=== PATIENT | male | born 1955 | race Caucasian/White ===

== ENCOUNTER → 2018-12-06 | Outpatient (CLI) | payer BC ==
[~2018-12-06] MED LIST: ASPIRIN81 MG PO; IOPAMIDOL 370 MG/ML 200 ML INFUS..BTL INJ ONE; NORVASC5 MG PO; OMEPRAZOLE40 MG PO; SODIUM CHLORIDE 0.9% 500ML 500 ML ONE; SODIUM CHLORIDE 0.9% 50ML 50 ML ONE
[2018-12-06 16:40] LABS: BLOOD UREA NITROGEN 10 mg/dL (7-26); BUN/CREATININE RATIO 11 (6-25); CREATININE, SERUM 0.92 mg/dL (0.72-1.25); EST GLOMERULAR FILTRATION RATE > 60 ML/MIN (60-)
--- NOTE | 2018-12-06 19:39 | Diagnostic Imaging Report ---
EXAMINATION: CT of the abdomen and pelvis with contrast. TECHNIQUE: Spiral CT images of the abdomen and pelvis were performed from the lung bases to the lesser trochanters after the intravenous administration of 100 cc of Isovue 370 and the oral administration of water. Coronal and sagittal reformatted images were obtained. COMPARISON: None. CLINICAL HISTORY:Right upper quadrant abdominal bulge and pain DISCUSSION: ABDOMEN/PELVIS: LOWER THORAX:6.5 mm pulmonary nodule in the right middle lobe (series 2, image 4). HEPATOBILIARY: Normal hepatic size and contour. Diffuse steatosis. Multiple fluid density lesions are scattered in both hepatic lobes, with the largest on the right measuring approximately 3.4 x 2.8 cm in segment VII (series 2, image 14), and the largest on the left measuring approximately 1.2 x 1.0 cm in hepatic segment II (series 2, image 11), consistent with simple cysts. No other hepatic lesions. No intra or extrahepatic biliary ductal dilation. GALLBLADDER: No radio-opaque stones or sludge. No wall thickening. SPLEEN: No splenomegaly. PANCREAS: No focal masses or ductal dilatation. ADRENALS: No adrenal nodules. KIDNEYS/URETERS: No hydronephrosis, stones, or solid mass lesions. Mostly exophytic 5.5 x 5.5 cm fluid density simple cyst in the left superior pole (series 2, image 23). 1.8 x 1.8 cm fluid density simple cyst in the right mid to inferior aspect (series 2, image 37). Well-defined fluid density structures in bilateral renal sinuses, likely representing peripelvic cysts. PELVIC ORGANS/BLADDER: No focal bladder lesions. Mild circumferential bladder wall thickening. The prostate measures approximately 4.1 x 3.7 x 4.1 cm (estimated volume 32 mL). PERITONEUM/RETROPERITONEUM: No free air or fluid. LYMPH NODES: No intra-abdominal, retroperitoneal, pelvic or inguinal lymphadenopathy. VESSELS: The celiac trunk,superior and inferior mesenteric and bilateral renal arteries are patent The portal, superior mesenteric and splenic veins are patent. GI TRACT: No bowel dilation or evidence of obstruction. No pericolonic inflammatory changes. Appendix is well identified and normal in caliber. No wall thickening. BONES AND SOFT TISSUE: No aggressive lytic lesions. Multilevel degenerative disc changes in the lower thoracic and lumbosacral spine. Nonaggressive appearing focal sclerotic 5 mm lesion in the left iliac bone (series 2, image 56), likely representing a bone island. Soft tissues are unremarkable. Specifically, no soft tissue mass is identified in the right lower chest or abdominal pelvic wall. IMPRESSION: 1. No soft tissue abnormalities. Specifically, no focal soft tissue mass is noted in the right abdomen. 2. Diffuse hepatic steatosis. Multiple simple appearing hepatic cysts. 3. Simple renal cysts, as described. 4. 6.5 mm pulmonary nodule in the right middle lobe. Recommend follow-up low dose nodule noncontrast chest CT in 6-12 months per Fleischner Society 2017 guidelines. 5. Mild circumferential bladder wall thickening. This may reflect mild bladder outlet obstruction from a borderline enlarged prostate. Signed by: Dr. Aidan Toledo M.D. on 12/06/2018 7:35 PM
== END ==
LOC: CT 15:04
PROVIDERS: ATTEND Internal Medicine Gastroenterology
DX: R19.01 Right upper quadrant abdominal swelling, mass and lump (principal)
CPT/HCPCS: 36415; 74177; 82565; 84520; J7040; Q9967

== ENCOUNTER → 2019-01-31 | Outpatient (CLI) | payer BC ==
[~2019-01-31] MED LIST changes: -IOPAMIDOL 370 MG/ML 200 ML INFUS..BTL INJ ONE; -SODIUM CHLORIDE 0.9% 500ML 500 ML ONE; -SODIUM CHLORIDE 0.9% 50ML 50 ML ONE
--- NOTE | 2019-01-31 09:45 | Diagnostic Imaging Report ---
EXAM: US GALLBLADDER DATE: 01/31/2019 7:38 AM INDICATION: Abdominal pain COMPARISON: CT abdomen and pelvis 12/06/2018 TECHNIQUE: Transverse and longitudinal rodriguez scale and color doppler sonographic images of the upper abdomen were obtained. FINDINGS: LIVER 15.6 cm in the right midclavicular line. Increased echogenicity, normal contour, no solid masses. Anechoic simple cyst in the left lobe measures 1.3 x 1.2 x 1.7 cm. GALLBLADDER Multiple shadowing, echogenic calculi within the lumen. No wall thickening or pericholecystic fluid. Negative sonographic Dhaliwal's sign. BILE DUCTS No intra nor extra-hepatic biliary dilation. Common bile duct measures 0.3 cm PANCREAS: Visualized portions are normal. RIGHT KIDNEY: 9.9 cm Echogenicity: Normal Collecting System: No hydronephrosis Stones: None Cyst/Mass: Peripelvic simple cyst measures 3.1 x 2.2 x 3.3 cm VESSELS: Aorta: Poorly visualized proximally. Nonaneurysmal distally. Inferior Vena Cava: Poorly visualized. Main Portal Vein: 0.9 cm, normal size with hepatopetal flow. FREE FLUID: None IMPRESSION: Increased hepatic parenchymal echogenicity compatible with steatosis. Cholelithiasis without sonographic evidence of acute cholecystitis. Left hepatic and right renal cysts as seen on comparison CT. Signed by: Dr. Arnold Hernandez M.D. on 01/31/2019 9:42 AM
--- NOTE | 2019-01-31 18:24 | Diagnostic Imaging Report ---
Hepatobiliary Scan with Gallbladder Ejection Fraction Clinical information: RUQ abdominal pain Technique: Following intravenous administration of 7.0 millicuries of Tc-99m mebrofenin, dynamic images of the abdomen in the anterior projection were obtained through 30 minutes. A static image was obtained at 75 minutes. Sincalide (CCK analog) 1.7 micrograms was administered intravenously over 30 minutes with additional imaging for determination of gallbladder ejection fraction. Discussion: Perfusion of the liver is normal. Extraction of tracer by the liver parenchyma is normal. Tracer appears promptly within the biliary tract. The gallbladder did not fill thorough 30 minutes but adequately filled by 75 minutes. Tracer is seen in the small bowel by 15 minutes. The gallbladder ejection fraction with sincalide is 4% (normal greater than 40%). Impression: 1. Filling of the gallbladder excludes acute cystic duct obstruction/acute cholecystitis. 2. The decreased gallbladder ejection fraction of 4% supports the clinical diagnosis of chronic cholecystitis/gallbladder dyskinesia. Signed by: Dr. Karina Rodriguez M.D. on 01/31/2019 6:21 PM
== END ==
LOC: US 07:28
PROVIDERS: ATTEND Internal Medicine Gastroenterology
DX: R10.9 Unspecified abdominal pain (principal)
CPT/HCPCS: 76705; 78227; A9537

== ENCOUNTER → 2024-01-20 | Day surgery (SDC) | payer MEDICARE ==
[2024-01-18 11:06] LABS: BASOPHILS # (AUTO) 0.1 (0.0-0.1); BASOPHILS % 1.1 % (0.0-1.0); EOSINOPHILS # (AUTO) 0.3 (0.0-0.4); EOSINOPHILS % 6.8 % (0.0-6.0); HEMATOCRIT 43.1 % (38.2-49.6); HEMOGLOBIN 15.6 g/dL (14.0-18.0); LYMPHOCYTES # (AUTO) 1.5 (1.0-3.2); LYMPHOCYTES % 31.6 % (18.0-39.1); MEAN CORPUSCULAR HGB CONC 36.2 g/dL (31-35); MEAN CORPUSCULAR VOLUME 88.3 fL (81-99); MONOCYTES # (AUTO) 0.6 (0.2-0.8); NEUTROPHILS # (AUTO) 2.2 (2.1-6.9); NEUTROPHILS % 47.3 % (38.7-80.0); PLATELET COUNT 185 x10e3/uL (140-360); RED BLOOD COUNT 4.88 x10e6/uL (4.3-5.7); RED CELL DISTRIBUTION WIDTH 12.4 % (11.7-14.4); WHITE BLOOD COUNT 4.68 x10e3/uL (4.8-10.8)
[~2024-01-20] MED LIST changes: +BIOTIN2500 MCG PO; +HYOSCYAMINE SULFATE 0.5 MG/ML INJ ONE; +LACTATED RINGER'S 1,000 ML BAG ONE; +LACTATED RINGER'S 1,000 ML ONE; +LIDOCAINE HCL 2% LOCAL INJ 5 ML SDV VIAL INJ ONE; +LOSARTAN-HCTZ1 EACH PO; +PROPOFOL IV EMULSION 10 MG/ML 20 ML VIAL ONE; +SAW PALMETTO450 MG PO; +VITAMIN C500 MG PO; +VITAMIN D3125 MCG PO
[2024-01-20] MEDS: LACTATED RINGER'S 1,000 ML BAG IV ONE (06:50)
[2024-01-20 08:17] VITALS: TEMP 97.4
[2024-01-20 09:00] VITALS: BP 131/90; PULSE 65; RESP 16; O2SAT 99
== END | disposition home or self-care (01) ==
LOC: OR 06:24
PROVIDERS: ATTEND Internal Medicine Gastroenterology
DX: Z09 Encounter for follow-up examination after completed treatment for conditions other than malignant neoplasm (principal); D12.2 Benign neoplasm of ascending colon; D12.5 Benign neoplasm of sigmoid colon; K64.8 Other hemorrhoids; K21.9 Gastro-esophageal reflux disease without esophagitis; I10 Essential (primary) hypertension; I49.9 Cardiac arrhythmia, unspecified; Z01.812 Encounter for preprocedural laboratory examination; Z79.82 Long term (current) use of aspirin; Z79.899 Other long term (current) drug therapy; Z86.73 Personal history of transient ischemic attack (TIA), and cerebral infarction without residual deficits; Z85.828 Personal history of other malignant neoplasm of skin
CPT/HCPCS: 36415; 45380; 45385; 85025; 93005; J1980; J2001; J2704; J7121; 45378